=== PATIENT | female | born 1970 | race Caucasian/White ===

== ENCOUNTER 2021-06-24 23:28 | Observation (INO) ==
[2021-06-25] MEDS ORDERED: SODIUM CHLORIDE 0.9% 500 ML IV STA (00:06)
--- NOTE | 2021-06-25 00:07 | Emergency Department Note ---
Impression & Plan Acute cholecystitis ADMIT ED Provider Note HPI: The patient is a 50-year-old female who presents the emergency department with a chief complaint of right upper quadrant abdominal pain. Patient states this pain began about 2 hours prior to arrival to the ED. She states she has had similar pain in the past that resolved on its own. Patient states that about 2 hours prior to arrival she developed a pain in the right upper quadrant that radiated to her back. She states she did have one episode of vomiting. Patient states that the pain has been relatively severe recently, states that it is in her upper abdomen and radiates somewhat towards her back. Patient denies any dysuria, denies any chest pain or shortness of breath. On arrival she is in mild distress secondary to pain but otherwise hemodynamically stable, saturating well on room air. ROS: -GI: Right upper quadrant abdominal pain radiating to the back *10 point review systems was conducted and is otherwise negative unless stated above *Outpatient medications and allergy history reviewed PE: General: Alert, NAD, morbidly obese HEENT: Normocephalic, atraumatic, trachea midline Eyes: Extraocular eye movement is intact, no scleral erythema Pulmonary: Clear to auscultation bilaterally, no wheezing Cardio: Regular rate and rhythm GI: Abdomen is soft, there is tenderness to the bilateral upper quadrants of the abdomen, no guarding or rigidity : No suprapubic tenderness MSK: No evidence of trauma or malformation of the extremities, no edema Skin: No evidence of rash Neuro: Alert, no focal deficits Psychiatric: Cooperative cafeteria monitor: - An order was placed for continuous cardiac monitoring - Patient was noted to be in sinus rhythm with rate of 60 EKG: Rate: 64 Rhythm: Normal sinus rhythm Intervals: Within normal limits ST changes: No ST elevation Time: 0013 CT ABDOMEN & PELVIS With Contrast: Comparison to ultrasound from June 25, [address] scan from June 17, 2011. There is a 3 cm hiatal hernia. Mild fatty infiltration of the liver. No focal liver lesion is seen. The liver is enlarged measuring 20 cm craniocaudad. No intrahepatic biliary duct dilation or choledocholithiasis. The gallbladder is distended but nondilated measuring 4.2 cm in short axis diameter. No calcified gallstones identified. No pericholecystic inflammation. The pancreas, spleen, adrenal glands, and kidneys appear within normal limits. Bowel loops are nondilated. There is a moderate amount of stool in the cecum and right colon measuring up to 6.7 cm in diameter suggesting mild constipation. The appendix is normal. There is severe diverticulosis of the lower left and sigmoid colon. No acute inflammatory changes are seen involving the bowel. Skeletal structures show mild degenerative changes in the lower thoracic spine. No fracture or bone lesion. Radiologist: Dionicio Valdez MD US RUQ: Comparison to CT scan from April 17, 2011. The liver measures 17 cm with normal echotexture. No focal liver lesion is seen. The gallbladder is nondilated measuring 9.9 cm long axis. There appears to be shadowing stone in the gallbladder neck. The wall thickness is borderline increased. No pericholecystic fluid is seen. Sonographic Medina sign cannot be assessed due to recent pain medication administration. The common bile duct is nondilated measuring 5 mm. The right kidney appears unremarkable. No hydronephrosis. Radiologist: Dionicio Valdez MD Medical Decision Making: Patient presented to the emergency department with some upper abdominal pain that radiated to her back. She is morbidly obese, I do have concern given that she does have pain in the right upper quadrant that her pain was secondary to biliary pathology. Lab work was obtained and is largely unremarkable, no transaminitis or elevated bilirubin, ultrasound imaging shows possible stone in the gallbladder neck, there is wall thickness that is borderline increased but no pericholecystic fluid is seen. CT imaging of the abdomen pelvis does not show any evidence of small bowel obstruction, there is some constipation, appendix appears normal, diverticulosis without any evidence of diverticulitis. Patient was given multiple doses of morphine and Zofran here in the ED, on my reassessment she still appears uncomfortable, states that she is not comfortable going home at this time. I do believe this is likely related to gallbladder pathology therefore I did discuss the case with the on-call general surgery PA, Bret Mccormack, patient was evaluated at the bedside and this is thought to be biliary pathology. Ultrasound imaging was re-read by in-house radiology and is now suggestive of acute cholecystitis on this interpretation. I believe that this is likely what is causing the patient's pain. Patient will be added onto the surgery schedule and was admitted to the service of Dr. Jordan following my discussion with the daytime on-call PARaul. Patient was made n.p.o., she is in agreement to the above plan, she was admitted to the surgical service in stable condition with plan for operative intervention today. * Diagnosis: Acute cholecystitis * Disposition: ADMIT Colton Mackey DO Emergency Medicine Past Med/Surg History Medical History (Updated 06/25/21 @ 07:22 by Colton Mackey DO) Anxiety HX: breast cancer RT BREAST (RADIATION)- DX: 08/2018 Surgical History H/O lumpectomy (08/2018) RT BREAST Previous section X 1 [place] teeth removed Family History Brother Afib Heart disease Father Heart disease Parkinsons disease Sister Breast cancer Family history of diabetes mellitus Mother Vaginal melanoma Social History Smoking Status: Never smoker Second Hand Exposure: No; Hx Alcohol Use: Yes Alcohol type: wine Hx Substance Use: No Preferred Language: Nepali Communication Ability: Effective Meal Cooker Required: No Beliefs That Will Affect Care: None marital status: Current Living Situation: Family 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: 14 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 Feels Safe at Home: Yes Diet Comment: reg diet Physical Activity Frequency: Does not Exercise Assistive Devices: None Allergies Allergies Allergy/AdvReac Type Severity Reaction Status Date / Time No Known Allergies Allergy Verified 06/25/21 00:46 Home Meds Home Medications Medication Instructions Recorded Confirmed cholecalciferol (vitamin D3) 25 25 mcg PO DAILY 12/19/19 06/25/21 mcg (1,000 unit) tablet (Vitamin D3) tamoxifen 20 mg tablet 20 mg PO QPM 12/19/19 06/25/21 Results & Data (ED) Vital Signs Vital Signs - 24 hr 06/24/21 23:33 06/25/21 00:29 06/25/21 03:42 Temperature 36.6 C 36.5 C Temperature Source Temporal Artery Scan Oral Pulse Rate 72 Pulse Rate [Right Finger] 60 54 L Pulse Rhythm Regular Pulse Rhythm [Right Finger] Regular Regular Pulse Strength Normal Pulse Strength [Right Finger] Normal Normal Respiratory Rate 18 18 18 Respiratory Effort / Characteristics Non-Labored Spontaneous Non-Labored Spontaneous Non-Labored Spontaneous Respiratory Depth Normal Normal Normal Respiratory Pattern Agonal Regular Blood Pressure 165/91 H Blood Pressure [Left Arm] 178/104 H 124/76 Blood Pressure Mean 115 Blood Pressure Mean [Left Arm] 128 92 Blood Pressure Position Sitting Blood Pressure Position [Left Arm] Lying Lying Pulse Oximetry 100 100 99 Oxygen Delivery Method Room Air Room Air Room Air Sepsis Recent Fever Within 48 Hours No Sepsis New/Unexplained Change in Mental Status N/A Sepsis Action Taken by Nursing No Action Required 06/25/21 06:23 Temperature Temperature Source Pulse Rate Pulse Rate [Right Finger] 63 Pulse Rhythm Pulse Rhythm [Right Finger] Regular Pulse Strength Pulse Strength [Right Finger] Normal Respiratory Rate 18 Respiratory Effort / Characteristics Non-Labored Spontaneous Respiratory Depth Normal Respiratory Pattern Blood Pressure Blood Pressure [Left Arm] 179/96 H Blood Pressure Mean Blood Pressure Mean [Left Arm] 123 Blood Pressure Position Blood Pressure Position [Left Arm] Lying Pulse Oximetry 99 Oxygen Delivery Method Room Air Sepsis Recent Fever Within 48 Hours Sepsis New/Unexplained Change in Mental Status Sepsis Action Taken by Nursing Laboratory Data Result diagrams: 06/25/21 00:19 06/25/21 00:19 Lab Results 06/25/21 06/25/21 06/25/21 Range/Units 00:19 00:19 00:25 WBC 4.99 (4.8-10.8) K/uL RBC 4.52 (4.2-5.4) M/uL Hgb 13.7 (12.0-16.0) g/dL Hct 40.0 (37-47) % MCV 88.5 (80-100) fL MCH 30.3 (25-34) pg MCHC 34.3 (32-36) g/dL RDW Std Deviation 39.5 (36.4-46.3) fL RDW Coeff of Jayla 12.4 (11.5-14.5) % Plt Count 249 (130-400) K/uL MPV 11.1 H (7.4-10.4) fL Immature Gran % (Auto) 0.2 % Neut % (Auto) 58.3 % Lymph % (Auto) 27.7 % [place] % (Auto) 9.4 % Eos % (Auto) 3.6 % Baso % (Auto) 0.8 % Neut # (Auto) 2.91 (1.4-6.5) K/uL Lymph # (Auto) 1.38 (1.2-3.4) K/uL [place] # (Auto) 0.47 (0.11-0.59) K/uL Eos # (Auto) 0.18 (0-0.5) K/uL Baso # (Auto) 0.04 (0-0.2) K/uL Immature Gran # (Auto) 0.01 (0.00-0.02) K/uL Sodium 141 (136-145) mmol/L Potassium 3.6 (3.5-5.1) mmol/L Chloride 107 (98-107) mmol/L Carbon Dioxide 29 (21-32) mmol/L Anion Gap 5.0 (3-11) BUN 15 (7-18) mg/dl Creatinine 0.79 (0.6-1.2) mg/dl Est Cr Clr Drug Dosing 108.1 ml/min Est GFR ( Amer) 101.2 ml/min Est GFR (Non-Af Amer) 87.3 ml/min BUN/Creatinine Ratio 19.4 (10-20) Glucose 116 H (70-99) mg/dl Calcium 10.0 (8.5-10.1) mg/dl Total Bilirubin 0.3 (0.2-1) mg/dl AST 13 L (15-37) U/L ALT 21 (12-78) U/L Alkaline Phosphatase 78 (45-117) U/L Troponin I < 0.015 (0-0.045) ng/ml Total Protein 7.2 (6.4-8.2) gm/dl Albumin 3.5 (3.4-5.0) gm/dl Globulin 3.7 (2.5-4.0) gm/dl Albumin/Globulin Ratio 0.9 (0.9-2) Lipase 117 (73-393) U/L Urine Color Yellow Urine Appearance Clear (Clear) Urine pH 5.5 (4.5-7.5) Ur Specific [place] 1.036 H (1.000-1.030) Urine Protein Negative (Negative) Urine Glucose (UA) Negative (Negative) Urine Ketones Trace H (Negative) Urine Blood Negative (Negative) Urine Nitrite Negative (Negative) Urine Bilirubin Negative (Negative) Urine Urobilinogen Negative (Negative) Ur Leukocyte Esterase 1+ H (Negative) Urine WBC (Auto) >30 H (0-5) /hpf Urine RBC (Auto) 0-4 (0-4) /hpf U Hyaline Cast (Auto) 5-10 H (0-5) /lpf U Epithel Cells (Auto) >30 H (0-5) /lpf Urine Bacteria (Auto) 1+ H (Negative) Calcium Oxalate Crystal Present A (None Prsent) Urine Mucus Present A (None Prsent) COVID-19 Eval Order 06/25/21 Range/Units 06:25 WBC (4.8-10.8) K/uL RBC (4.2-5.4) M/uL Hgb (12.0-16.0) g/dL Hct (37-47) % MCV (80-100) fL MCH (25-34) pg MCHC (32-36) g/dL RDW Std Deviation (36.4-46.3) fL RDW Coeff of Jayla (11.5-14.5) % Plt Count (130-400) K/uL MPV (7.4-10.4) fL Immature Gran % (Auto) % Neut % (Auto) % Lymph % (Auto) % [place] % (Auto) % Eos % (Auto) % Baso % (Auto) % Neut # (Auto) (1.4-6.5) K/uL Lymph # (Auto) (1.2-3.4) K/uL [place] # (Auto) (0.11-0.59) K/uL Eos # (Auto) (0-0.5) K/uL Baso # (Auto) (0-0.2) K/uL Immature Gran # (Auto) (0.00-0.02) K/uL Sodium (136-145) mmol/L Potassium (3.5-5.1) mmol/L Chloride (98-107) mmol/L Carbon Dioxide (21-32) mmol/L Anion Gap (3-11) BUN (7-18) mg/dl Creatinine (0.6-1.2) mg/dl Est Cr Clr Drug Dosing ml/min Est GFR ( Amer) ml/min Est GFR (Non-Af Amer) ml/min BUN/Creatinine Ratio (10-20) Glucose (70-99) mg/dl Calcium (8.5-10.1) mg/dl Total Bilirubin (0.2-1) mg/dl AST (15-37) U/L ALT (12-78) U/L Alkaline Phosphatase (45-117) U/L Troponin I (0-0.045) ng/ml Total Protein (6.4-8.2) gm/dl Albumin (3.4-5.0) gm/dl Globulin (2.5-4.0) gm/dl Albumin/Globulin Ratio (0.9-2) Lipase (73-393) U/L Urine Color Urine Appearance (Clear) Urine pH (4.5-7.5) Ur Specific [place] (1.000-1.030) Urine Protein (Negative) Urine Glucose (UA) (Negative) Urine Ketones (Negative) Urine Blood (Negative) Urine Nitrite (Negative) Urine Bilirubin (Negative) Urine Urobilinogen (Negative) Ur Leukocyte Esterase (Negative) Urine WBC (Auto) (0-5) /hpf Urine RBC (Auto) (0-4) /hpf U Hyaline Cast (Auto) (0-5) /lpf U Epithel Cells (Auto) (0-5) /lpf Urine Bacteria (Auto) (Negative) Calcium Oxalate Crystal (None Prsent) Urine Mucus (None Prsent) COVID-19 Eval Order Covid19 at [facility] Administered Medications Discontinued Medications Sodium Chloride (Nss) 500 mls @ 999 mls/hr IV .Q31M STA Stop: 06/25/21 00:36 Last Infusion: 06/25/21 01:43 Dose: 0 mls/hr Documented by: [id number] Admin: 06/25/21 00:21 Dose: 999 mls/hr Documented by: [id number] Cefoxitin Sodium (Mefoxin) 2,000 mg in 60 mls @ 100 mls/hr IV NOW STA Stop: 06/25/21 07:04 Last Admin: 06/25/21 06:57 Dose: 100 mls/hr Documented by: [id number] Ioversol (Optiray 320 100ml) 100 ml IV ONCE ONE Stop: 06/25/21 04:35 Last Admin: 06/25/21 04:34 Dose: 93 ml Documented by: [id number] Morphine Sulfate (Morphine Sulfate 4 Mg/Ml 1 Ml Carp\Vial) 4 mg IV NOW STA Stop: 06/25/21 00:37 Last Admin: 06/25/21 00:40 Dose: 4 mg Documented by: [id number] Morphine Sulfate (Morphine Sulfate 4 Mg/Ml 1 Ml Carp\Vial) 4 mg IV NOW STA Stop: 06/25/21 06:10 Last Admin: 06/25/21 06:18 Dose: 4 mg Documented by: [id number] Ondansetron HCl (Ondansetron Inj 2 Mg/Ml 2 Ml Vial) 4 mg IV NOW STA Stop: 06/25/21 03:32 Last Admin: 06/25/21 03:39 Dose: Not Given Documented by: [id number] Ondansetron HCl (Ondansetron Inj 2 Mg/Ml 2 Ml Vial) 4 mg IV NOW STA Stop: 06/25/21 03:37 Last Admin: 06/25/21 03:40 Dose: 4 mg Documented by: [id number] Imaging Data Radiologist's Impression: Gallbladder Ultrasound 06/25/21 00:06 US gallbladder CLINICAL HISTORY: Abdominal pain COMPARISON STUDY: CT of the abdomen and pelvis April 17, 2011. FINDINGS: Liver morphology is normal. No hepatic lesions are identified. There is no biliary ductal dilatation. Common bile duct measures 5 mm in caliber. The gallbladder is mildly distended. No gallbladder wall thickening is noted. Sonographic Medina sign could not be assessed for. There are suspected small stones within the gallbladder neck or cystic duct. There is no pericholecystic fluid. There is no right hydronephrosis. Pancreatic body is normal. Head and tail are obscured. IMPRESSION: 1. Suspected small stones within the gallbladder neck and cystic duct. Mild gallbladder distention. The findings are suspicious for acute cholecystitis and will be called/faxed to the ordering provider. 2. No biliary ductal dilatation. ACT 112: Negative or not required by law. Electronically signed by: Erasto Givens M.D. 06/25/2021 7:05 AM Chest X-Ray 06/25/21 06:36 XR chest 1V portable CLINICAL HISTORY: Preoperative evaluation. COMPARISON STUDY: No previous studies for comparison. FINDINGS: Lung volumes are normal. Lungs are clear. There is no pneumothorax or pleural effusion. Cardiac size is normal. Mediastinal contours are normal. There is no evidence for pulmonary edema. IMPRESSION: No acute cardiopulmonary findings. ACT 112: Negative or not required by law. Electronically signed by: Erasto Givens M.D. 06/25/2021 7:06 AM Discharge Plan Visit Data Chief Complaint: Abdominal Pain Stated Complaint: R SIDE ABDOMINAL PAIN, BACK PAIN, NAUSEA ED Provider: Colton Mackey Discharge Problem: Acute cholecystitis Forms Stand Alone Forms: [facility] Prescriptions Prescriptions: No Action tamoxifen 20 mg Tablet 20 mg PO QPM RF: 0 cholecalciferol (vitamin D3) [Vitamin D3] 25 mcg (1,000 unit) Tablet 25 mcg PO DAILY RF: 0 Referrals Referrals: Zari Machado CRNP [Primary Care Provider] -
[2021-06-25 00:32] LABS: Basophils # (auto) 0.04 K/uL (0-0.2); Basophils % (auto) 0.8 %; Eosinophils # (auto) 0.18 K/uL (0-0.5); Eosinophils % (auto) 3.6 %; Hemoglobin 13.7 g/dL (12.0-16.0); Immature Granulocytes # (auto) 0.01 K/uL (0.00-0.02); Immature Granulocytes % (auto) 0.2 %; Lymphocytes # (auto) 1.38 K/uL (1.2-3.4); Lymphocytes % (auto) 27.7 %; Mean Corpuscular Hemoglobin 30.3 pg (25-34); Mean Corpuscular Hgb Conc 34.3 g/dL (32-36); Mean Corpuscular Volume 88.5 fL (80-100); Mean Platelet Volume 11.1 fL (7.4-10.4); Monocytes # (auto) 0.47 K/uL (0.11-0.59); Monocytes % (auto) 9.4 %; Neutrophils # (auto) 2.91 K/uL (1.4-6.5); Neutrophils % (auto) 58.3 %; Platelet Count 249 K/uL (130-400); RDW Coefficient of Variation 12.4 % (11.5-14.5); RDW Standard Deviation 39.5 fL (36.4-46.3); Red Blood Count 4.52 M/uL (4.2-5.4); White Blood Count 4.99 K/uL (4.8-10.8)
[2021-06-25] MEDS ORDERED: MoRPHine SULFATE 4 MG/ML 1 ML CARP\\VIAL IV STA ×2 (00:36→06:09)
[2021-06-25 00:55] LABS: Alanine Aminotransferase 21 U/L (12-78); Albumin Level 3.5 gm/dl (3.4-5.0); Aspartate Aminotransferase 13 U/L (15-37); BUN Creatinine Ratio 19.4 (10-20); Blood Urea Nitrogen 15 mg/dl (7-18); Carbon Dioxide 29 mmol/L (21-32); Chloride 107 mmol/L (98-107); Creatinine Clr Calc Pharmacy 108.1 ml/min; Est GFR (African American) 101.2 ml/min; Est GFR (Non-African American) 87.3 ml/min; Glucose 116 mg/dl (70-99); Lipase 117 U/L (73-393); Potassium 3.6 mmol/L (3.5-5.1); Sodium 141 mmol/L (136-145)
[2021-06-25 01:00] LABS: Albumin Globulin Ratio 0.9 (0.9-2); Alkaline Phosphatase 78 U/L (45-117); Bilirubin,Total 0.3 mg/dl (0.2-1); Globulin 3.7 gm/dl (2.5-4.0); Total Protein 7.2 gm/dl (6.4-8.2); Troponin I < 0.015 ng/ml (0-0.045)
[2021-06-25 01:55] LABS: Appearance Urine Clear (Clear); Bilirubin Urine Negative (Negative); Blood Urine Negative (Negative); Color Urine Yellow; Epithelial Cell Urine Auto >30 /lpf (0-5); Glucose Urine UA Negative (Negative); Ketones Urine Trace (Negative); Leukocyte Esterase Urine 1+ (Negative); Nitrite Urine Negative (Negative); Protein Urine Negative (Negative); Specific Gravity Urine 1.036 (1.000-1.030); Urobilinogen Urine Negative (Negative); WBC Urine Automated >30 /hpf (0-5); pH Urine 5.5 (4.5-7.5)
[2021-06-25 02:19] LABS: Mucus Urine Present (None Prsent); RBC Urine Automated 0-4 /hpf (0-4)
[2021-06-25 02:20] LABS: Calcium Oxalate Crystals Urine Present (None Prsent)
[2021-06-25 02:21] LABS: Bacteria Urine Automated 1+ (Negative)
[2021-06-25] MEDS ORDERED: ONDANSETRON INJ 2 MG/ML 2 ML VIAL IV STA ×2 (03:31→03:36)
[2021-06-25] MEDS ORDERED: OPTIRAY 320 100ml IV ONE (04:34)
[2021-06-25] MEDS ORDERED: cefOXitin 2,000 MG/60 ML BAG IV STA (06:29)
--- NOTE | 2021-06-25 06:31 | History & Physical Report ---
Date of Service June 25, 2021 Assessment & Plan (1) Cholelithiasis: Plan: Due to the patient's imaging and clinical presentation she will be admitted to the hospital proceeding as follows: Covid test has been performed we will follow for results of this Keep patient n.p.o. Provide IV fluid for hydration Provide antibiotics the form of cefoxitin Provide analgesics Provide antiemetics I discussed the cholecystectomy with the patient and she wishes to proceed. I have discussed Dr. Jordan and he will be willing to perform the procedure later today Additional recommendations were made based on her clinical course as unfolds as well as operative findings She will be a full code SCDs will be used for DVT prevention. History of Present Illness Chief Complaint: Abdominal pain Primary Care Provider: JUSTO Hammonds Is a 50-year-old female who presented to emergency department with right upper quadrant pain and associated nausea vomiting. She denies any fever shakes or chills. Patient says several months ago she did have right upper quadrant pain shortly after eating but this pain remitted. Last evening the pain recurred in a similar fashion and was unbearable so she presented to the emergency department. Denies radiation of the pain and denies any palliative or provocative factors other than medicines administered in the emergency department. She says she has had prior abdominal surgeries in the form of a C- section. In the emergency department patient had labs and imaging which independent reviewed. A CBC revealed white blood cell count, hemoglobin, hematocrit, and platelet count are within normal range. Chemistry profile showed sodium, potassium, BUN, and creatinine were all within the normal range. There were no elevation of bilirubin, transaminases, or alkaline phosphatase. Her lipase was normal. Urinalysis revealed greater than 30 white blood cells per high-power field and 1+ leukocyte esterase. A Covid test has been ordered and is pending. An EKG showed normal sinus rhythm without changes indicative of a gallbladder ultrasound that showed the patient had a nondilated gallbladder but she was noted to have a gallstone in the gallbladder neck with borderline gallbladder wall thickness and no pericholecystic fluid. A CT scan of the abdomen and pelvis showed the patient did have a distended gallbladder but was not dilated. No pericholecystic fluid or inflammation was noted on the study. Patient notes with her daily activities she does not get chest pain or shortness of breath with ambulation. She says that she can negotiate steps and inclines without any limitations. At the time my interview the patient was resting comfortably in bed. She was in no distress but was somewhat uncomfortable in the right upper quadrant of her abdomen. Allergies Allergy/AdvReac Type Severity Reaction Status Date / Time No Known Allergies Allergy Verified 06/25/21 00:46 Home Medications Medication Instructions Recorded Confirmed Type cholecalciferol (vitamin D3) 25 25 mcg PO DAILY 12/19/19 06/25/21 History mcg (1,000 unit) tablet (Vitamin D3) tamoxifen 20 mg tablet 20 mg PO QPM 12/19/19 06/25/21 History Past Med/Surg History Medical History Anxiety HX: breast cancer RT BREAST (RADIATION)- DX: 08/2018 Surgical History H/O lumpectomy (08/2018) RT BREAST Previous section X 1 [place] teeth removed Family History Brother Afib Heart disease Father Heart disease Parkinsons disease Sister Breast cancer Family history of diabetes mellitus Mother Vaginal melanoma Social History Smoking Status: Never smoker Second Hand Exposure: No; Hx Alcohol Use: No Hx Substance Use: No Preferred Language: Montserratian Communication Ability: Effective Statement Distribution Clerk Required: No Beliefs That Will Affect Care: None marital status: Current Living Situation: Spouse 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: 14 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 Feels Safe at Home: Yes Safety Concerns: Feels Safe At This Time Diet Comment: reg diet Physical Activity Frequency: Does not Exercise Assistive Devices: Glasses Review of Systems Constitutional: no fever and no chills Eyes: no diplopia Ear, Nose, Mouth, Throat: no ear pain Respiratory: no cough and no dyspnea Cardiovascular: no chest pain Gastrointestinal: + abdominal pain, + nausea and + vomiting Genitourinary: no dysuria Musculoskeletal: no back pain Integumentary: no rash Neurologic: no localized weakness Physical Exam Constitutional: well developed and well nourished; no acute distress Eyes: no conjunctival abnormality ENMT: Ears: no hearing impairment Neck: trachea midline Respiratory: normal respiratory effort; no respiratory distress and no labored breathing Cardiovascular: Rate/Rhythm: regular rate and regular rhythm Gastrointestinal (Abdomen): Abdomen is soft and nondistended. There is no r ebound tenderness or guarding but patient had significant pain with palpation in the right upper quadrant. Musculoskeletal: No calf tenderness Skin: no rashes, warm and dry Neurologic: moves all extremities Psychiatric: A+Ox3, euthymic affect Results & Data Results & Data ([facility]) Vital Signs (Past 12 Hours) Vital Signs Temp Pulse Pulse Resp BP BP Pulse Ox 06/25/21 06:23 63 18 179/96 H 99 06/25/21 03:42 54 L 18 124/76 99 06/25/21 00:29 36.5 C 60 18 178/104 H 100 06/24/21 23:33 36.6 C 72 18 165/91 H 100 Code Status & VTE Plan VTE Prophylaxis Plan VTE Prophylaxis will be ordered: Yes Supervising Physician Co-Signing Physician Notes Patient seen and examined, labs and imaging reviewed, agree with above. 50-year-old female presented with postprandial right upper quadrant pain started last evening. She had a similar episode about a month ago that resolved on its own after several hours. On exam she is afebrile with stable vitals. Her abdomen is soft, tender to palpation in the right upper quadrant with negative Medina sign. CT with distended gallbladder. Right upper quadrant ultrasound with cholelithiasis and question of impacted gallstone in gallbladder neck. WBC and LFTs normal. Cholelithiasis with likely early acute cholecystitis Plan for laparoscopic cholecystectomy with possible cholangiogram Risk of the procedure were discussed to include but not limited to bleeding, infection, retained stone, bile leak, damage surrounding structures, need for future more extensive surgery, open surgery, and the risk of anesthesia PG Care Time/CCT Total # of Minutes Spent Total Time Spent with Patient: Total time spent is greater than 50% in coordination of care (as documented) at patient's floor/unit and/or counseling patient: Coding Level of Care Code INT OBSERVATION CARE 70M LVL 3 Diagnoses Cholelithiasis K80.20
--- NOTE | 2021-06-25 07:07 | XRay Report ---
XR chest 1V portable CLINICAL HISTORY: Preoperative evaluation. COMPARISON STUDY: No previous studies for comparison. FINDINGS: Lung volumes are normal. Lungs are clear. There is no pneumothorax or pleural effusion. Car diac size is normal. Mediastinal contours are normal. There is no evidence for pulmonary edema. IMPRESSION: No acute cardiopulmonary findings. ACT 112: Negative or not required by law. Electronically signed by: Erasto Givens M.D. 06/25/2021 7:06 AM
--- NOTE | 2021-06-25 07:07 | Ultrasound Report ---
US gallbladder CLINICAL HISTORY: Abdominal pain COMPARISON STUDY: CT of the abdomen and pelvis April 17, 2011. FINDINGS: Liver morphology is normal. No hepatic lesions are identified. There is no biliary ductal d ilatation. Common bile duct measures 5 mm in caliber. The gallbladder is mildly distended. No gallbla dder wall thickening is noted. Sonographic Medina sign could not be assessed for. There are suspected small stones within the gallbladder neck or cystic duct. There is no pericholecystic fluid. There is no right hydronephrosis. Pancreatic body is normal. Head and tail are obscured. IMPRESSION: 1. Suspected small stones within the gallbladder neck and cystic duct. Mild gallbladder distention. T he findings are suspicious for acute cholecystitis and will be called/faxed to the ordering provider. 2. No biliary ductal dilatation. ACT 112: Negative or not required by law. Electronically signed by: Erasto Givens M.D. 06/25/2021 7:05 AM
--- NOTE | 2021-06-25 07:49 | CT Scan Report ---
CT abd pelvis IV con only CLINICAL HISTORY: Right-sided flank pain COMPARISON STUDY: 04/17/2011 CT DOSE: 1784.10 mGy.cm TECHNIQUE: Standard CT of the Abdomen and Pelvis was performed with IV contrast. A dose lowering silvia hnique was utilized adhering to the principles of ALARA. Contrast Volume: Optiray 320, 93 ml. The patient did not receive oral contrast. FINDINGS: Lung base: The lung bases are clear. Abdominal cavity: There is no evidence for abdominal mass, adenopathy or ascites. Liver: There is homogeneous attenuation of the liver parenchyma. There is no evidence for enhancing m ass lesion. There is evidence for mild hepatomegaly. Spleen: There is homogeneous attenuation of the splenic parenchyma. There is no enhancing mass lesion . Pancreas: There is homogeneous attenuation of the pancreatic parenchyma. There is no evidence for mas s lesion or peripancreatic fluid collection. Gall Bladder: The gallbladder is distended. No calculi or wall thickening is seen. If indicated clini [place], follow-up gallbladder ultrasound would be the study of choice for further evaluation. Adrenal glands: The adrenal glands are normal in size and attenuation. There is no evidence for enhan cing mass lesion. Kidneys: There is homogeneous attenuation of the renal parenchyma bilaterally. There is no evidence f or renal calculus or hydronephrosis. There is no evidence for enhancing mass. Bowel: There is a small to moderate size hiatal hernia. The bowel loops are normally placed within th e abdomen and pelvis. There is no evidence for mass lesion. There is again sigmoid diverticulosis wit hout evidence for diverticulitis on the current study. There are no inflammatory changes present. The re is no evidence for free air. There is a normal appendix in the right lower quadrant. Bladder: The bladder is within normal limits with no evidence for focal mass, calculus or diverticulu m. : There is no evidence for pelvic mass or adenopathy. There is no evidence for pelvic ascites. Vasculature: There is no evidence for aneurysmal dilatation of the abdominal aorta. Osseous structures: There is no acute osseous pathology. Degenerative facet joint disease is present involving the lower lumbar spine. IMPRESSION: 1. No evidence for renal calculus or hydronephrosis. 2. Normal appendix in the right lower quadrant. 3. Sigmoid diverticulosis without evidence for diverticulitis. 4. Small to moderate size hiatal hernia. 5. Additional nonacute findings as delineated above. ACT 112: Negative or not required by law. Electronically signed by: Jp Lozada M.D. 06/25/2021 7:48 AM
[2021-06-25] MEDS ORDERED: ONDANSETRON INJ 2 MG/ML 2 ML VIAL ONE ×2 (08:33→09:57)
[2021-06-25] MEDS ORDERED: MoRPHine SULFATE 4 MG/ML 1 ML CARP\\VIAL IV PRN ×2 (09:12→14:53)
[2021-06-25] MEDS ORDERED: ONDANSETRON INJ 2 MG/ML 2 ML VIAL IV PRN ×2 (09:12→14:53)
--- NOTE | 2021-06-25 09:16 | Anesthesiology Consultation ---
Date of Service June 25, 2021 Assessment & Plan (1) Encounter for pre-operative examination: Chart Review Chart Review: Acceptable Risk for Surgery and Patient NOT seen in Pre Admission Testing Consults Requested none History Surgery Operation Date: 06/25/21 09:40 Proposed Procedures p Laparoscopic Versus Open Cholecystectomy - Abdoulaye Jordan DO, FACS Height/Weight Height: 5 ft 5 in Weight: 115.4 kg Allergies Allergy/AdvReac Type Severity Reaction Status Date / Time No Known Allergies Allergy Verified 06/25/21 00:46 Medications Home Medications Medication Instructions Recorded Confirmed Last Taken cholecalciferol (vitamin D3) 25 25 mcg PO DAILY 12/19/19 06/25/21 01/15/20 19:00 mcg (1,000 unit) tablet (Vitamin D3) tamoxifen 20 mg tablet 20 mg PO QPM 12/19/19 06/25/21 01/15/20 19:00 Past Medical History Medical History Anxiety HX: breast cancer RT BREAST (RADIATION)- DX: 08/2018 Past Family History Family History Brother Afib Heart disease Father Heart disease Parkinsons disease Sister Breast cancer Family history of diabetes mellitus Mother Vaginal melanoma Past Surgical History Surgical History H/O lumpectomy (08/2018) RT BREAST Previous section X 1 [place] teeth removed Social History Smoking Status: Never smoker Hx Alcohol Use: No Alcohol type: wine alcohol intake frequency: a few times a month Hx Substance Use: No substance use type: does not use Physical Exam Vital Signs Last Vital Signs Temp 98.1 F 06/25/21 07:39 Pulse 57 L 06/25/21 08:49 Resp 20 06/25/21 08:49 BP 183/94 H 06/25/21 08:49 Pulse Ox 57 L 06/25/21 08:49 Testing Laboratory Results 06/25/21 00:19 06/25/21 00:19 Urine Color Yellow 06/25/21 00:25 Urine Appearance Clear (Clear) 06/25/21 00:25 Urine pH 5.5 (4.5-7.5) 06/25/21 00:25 Ur Specific [place] 1.036 (1.000-1.030) H 06/25/21 00:25 Urine Protein Negative (Negative) 06/25/21 00:25 Urine Glucose (UA) Negative (Negative) 06/25/21 00:25 Urine Ketones Trace (Negative) H 06/25/21 00:25 Urine Nitrite Negative (Negative) 06/25/21 00:25 Ur Leukocyte Esterase 1+ (Negative) H 06/25/21 00:25 Urine WBC (Auto) >30 /hpf (0-5) H 06/25/21 00:25 Urine RBC (Auto) 0-4 /hpf (0-4) 06/25/21 00:25 U Hyaline Cast (Auto) 5-10 /lpf (0-5) H 06/25/21 00:25 U Epithel Cells (Auto) >30 /lpf (0-5) H 06/25/21 00:25 Urine Bacteria (Auto) 1+ (Negative) H 06/25/21 00:25 Electrocardiogram Date: 06/25/21 Findings: + NSR @
[2021-06-25] MEDS: LACTATED RINGER'S 1,000 ML IV SCH (09:21)
[2021-06-25] MEDS ORDERED: LIDOCAINE 2% 2 ML VIAL/AMP(20MG/ML) INFIL ONE (09:56)
[2021-06-25] MEDS ORDERED: PROPOFOL IV EMULSION 10 MG/ML 20 ML VIAL IV ONE (09:56)
[2021-06-25] MEDS ORDERED: MIDAZOLAM HCL 1 MG/ML 2ML VIAL ONE (09:57)
[2021-06-25] MEDS ORDERED: fentaNYL citrate 100 MCG/2 ML VIAL ONE ×2 (09:57→14:04)
[2021-06-25] MEDS ORDERED: NEOSTIGMINE METHYLSULFATE 1 MG/ML 10ML VIAL ONE (09:57)
[2021-06-25] MEDS ORDERED: ROCURONIUM BROMIDE 10 MG/ML 5 ML VIAL IV ONE (09:57)
[2021-06-25] MEDS ORDERED: GLYCOPYRROLATE 0.2 MG/ML VIAL ONE (09:57)
[2021-06-25] MEDS ORDERED: DEXAMETHASONE SOD INJ 4 MG/ML VIAL ONE (09:57)
[2021-06-25] MEDS ORDERED: ACETAMINOPHEN 1000 MG/100 ML IV IV ONE (10:17)
[2021-06-25] MEDS ORDERED: ATROPINE SULFATE 0.1 MG/ML 10ML SYR IV PRN (11:16)
[2021-06-25] MEDS ORDERED: PROMETHAZINE HCL 12.5 MG in SODIUM CHLORIDE 0.9% 50 ML IV PRN (11:16)
[2021-06-25] MEDS ORDERED: LABETALOL HCL IV 5 MG/ML 20ML IV PRN (11:16)
[2021-06-25] MEDS ORDERED: fentaNYL citrate 100 MCG/2 ML VIAL IV PRN (11:16)
[2021-06-25] MEDS ORDERED: ePHEDrine sulfate 50 MG/ML AMP IV PRN (11:16)
[2021-06-25] MEDS ORDERED: BUPIVACAINE 0.5 % 5 MG/1 ML MPF 30ML VIAL ONE (12:36)
--- NOTE | 2021-06-25 12:57 | History & Physical Bridge Note ---
Date of Service June 25, 2021 History & Physical Bridge Note I have examined the patient, reviewed the History & Physical and in the interval since the performance of the History & Physical I have noted the following changes of clinical significance: no changes noted
[2021-06-25] MEDS: cefOXitin 2,000 MG in DEXTROSE 5% 50 ML IV SCH ×2 (13:28→19:16)
--- NOTE | 2021-06-25 13:42 | Electrocardiogram Report ---
Test Reason : Blood Pressure : / mmHG Vent. Rate : 064 BPM Atrial Rate : 064 BPM P-R Int : 192 ms QRS Dur : 084 ms QT Int : 436 ms P-R-T Axes : 039 011 029 degrees QTc Int : 449 ms Normal sinus rhythm Normal ECG When compared with ECG of 29-DEC-2019 10:01, No significant change was found Confirmed by Michael Mcclelland ([id number]) on 06/25/2021 1:42:34 PM Referred By: REFERRED SELF Confirmed By:Michael Mcclelland
--- NOTE | 2021-06-25 14:08 | Operative Report ---
PG Post Operative Report Pre & Post Diagnosis Operation Date: 06/25/21 09:40 Pre-Op Diagnosis: Acute Cholecystitis Post-Op Diagnosis: Acute Cholecystitis I identified the patient and participated in the time-out.: Yes Procedure Operation Date: 06/25/21 09:40 Actual Procedures p Laparoscopic Cholecystectomy(Not Applicable) - Abdoulaye Jordan DO, CHRIS Surgeon Abdoulaye Jordan DO, FACS Spanish Professor Umesh Richardson Estimated Blood Loss 5 Findings Consistent with Post-Op Diagnosis Acute cholecystitis. Gallbladder decompressed. Critical view of safety obtained, cystic duct and artery doubly clipped and divided. Specimens Gallbladder Anesthesia Type General Complications none Disposition Accompanied Patient To Recovery: No Disposition: Recovery Room Indications 50-year-old female admitted early this morning with cholelithiasis and likely acute cholecystitis, plan for laparoscopic cholecystectomy with possible cholangiogram. The risks of the procedure were discussed, all questions were answered, and the patient agreed to proceed with surgery as planned. Description of Procedure The patient was properly identified, consented, and taken to the operating room where she was placed in the supine position. General endotracheal anesthesia was induced. SCDs and a safety belt were placed. Preoperative antibiotics were administered. The patient's abdomen was prepped and draped in the standard sterile fashion. A surgical timeout was performed and all parties were in agreement that this was the correct patient and procedure to be performed and we continued as planned. An incision was made superior and to the left of the umbilicus overlying the rectus muscle and the Veress needle was inserted. Saline drop test confirmed entry into the peritoneum. The abdomen was insufflated with carbon dioxide which the patient tolerated without incident. The abdomen was then entered using the Optiview technique and a 5 mm trocar. The laparoscope was inserted and no damage from initial trocar or Veress needle placement was noted, no gross abnormalities were noted within the 4 quadrants of the abdomen. An 11 mm port was placed in the subxiphoid position and two 5 mm ports were then placed in the right subcostal position. The patient was placed in reverse Trendelenburg position and rotated towards the left. The gallbladder was acutely inflamed. The gallbladder was decompressed to allow for retraction. The dome of the gallbladder was retracted towards the left upper quadrant and the infundibulum was retracted toward the right lower quadrant revealing Calot's triangle. Peritoneal attachments were taken down with electrocautery and blunt dissection. The cystic duct and artery were circumferentially dissected. An anterior branch of the artery ran across the cystic duct and was clipped and divided. A window of safety was obtained showing the cystic duct entering the gallbladder with no aberrant structures noted. The cystic duct and artery were doubly clipped and divided. The gallbladder was then lifted off the gallbladder fossa with electrocautery. The gallbladder was placed in an Endo Catch bag and removed through the subxiphoid port site. The right upper quadrant was irrigated and hemostasis was found to be good. 5 mm trochars were removed under direct visualization and the abdomen was allowed to collapse. The subxiphoid port site fascia was closed with 0 Vicryl suture utilizing the Chilo-Radha device The wound was irrigated, and the skin of all ports was closed with 4-0 Monocryl subcuticular sutures. Dermabond was placed over the wounds. The patient was extubated in the operating room and taken to the PACU where she recovered without apparent incident. All sponge, instrument and needle counts were correct at the conclusion of the procedure. The patient tolerated the procedure well. The physician's tax assistant was present and scrubbed for the entirety of the case and was essential in positioning the patient, prepping and draping, retraction and exposure, driving the laparoscope, removal of the gallbladder, closure the incisions, and placement of the dressings. I attest to the content of the Intraoperative Record and any orders documented therein. Any exceptions are noted below.
[2021-06-25] MEDS ORDERED: oxyCODONE/ACETAMINOPHEN 5mg/325mg TAB PO PRN (14:53)
[2021-06-25] MEDS ORDERED: MoRPHine SULFATE 2 MG/ML CARP IV PRN (14:53)
--- NOTE | 2021-06-25 15:30 | Anesthesiology Progress Note ---
Date of Service June 25, 2021 Anesthesia Post Procedure Vital Signs Vital Signs: Temp Pulse Pulse Pulse Pulse Resp BP 06/25/21 15:00 36.7 C 68 20 06/25/21 14:55 36.6 C 75 22 06/25/21 14:45 73 22 06/25/21 14:35 79 24 06/25/21 14:25 72 28 H 06/25/21 14:19 36.5 C 75 22 06/25/21 10:59 36.7 C 72 16 06/25/21 09:00 59 L 20 06/25/21 08:49 57 L 20 183/94 H 06/25/21 07:39 36.7 C 59 L 22 06/25/21 07:37 60 20 06/25/21 07:00 60 20 06/25/21 06:23 63 18 06/25/21 03:42 54 L 18 06/25/21 00:29 36.5 C 60 18 06/24/21 23:33 36.6 C 72 18 165/91 H BP Pulse Ox 06/25/21 15:00 107/70 95 06/25/21 14:55 113/60 93 06/25/21 14:45 118/62 94 06/25/21 14:35 117/75 97 06/25/21 14:25 120/67 97 06/25/21 14:19 146/85 H 99 06/25/21 10:59 145/87 H 97 06/25/21 09:00 148/90 H 98 06/25/21 08:49 57 L 06/25/21 07:39 133/75 97 06/25/21 07:37 123/101 H 99 06/25/21 07:00 99 06/25/21 06:23 179/96 H 99 06/25/21 03:42 124/76 99 06/25/21 00:29 178/104 H 100 06/24/21 23:33 100 Pain Intensity Abdomen: Pain Intensity: 7 Right Shoulder: Pain Intensity: 2 Transfer of Care Handoff Completed per policy Notes Mental Status: alert / awake / arousable and participated in evaluation Patient Amnestic to Procedure: Yes Nausea / Vomiting: adequately controlled Pain: adequately controlled Airway Patency, RR, SpO2: stable & adequate BP & HR: stable & adequate Hydration State: stable & adequate Anesthetic Complications: no major complications apparent and Pt Satisfied with anesthetic care
[2021-06-25] MEDS: oxyCODONE/ACETAMINOPHEN 5mg/325mg TAB PO PRN ×2 (18:16→22:29)
[2021-06-26] MEDS: cefOXitin 2,000 MG in DEXTROSE 5% 50 ML IV SCH ×2 (01:49→06:13)
[2021-06-26] MEDS: LACTATED RINGER'S 1,000 ML IV SCH (04:34)
--- NOTE | 2021-06-26 07:39 | Surgery Progress Note ---
Date of Service June 26, 2021 Assessment & Plan (1) Acute cholecystitis: Plan: POD 1 lap christina increase activity d/c later today Admission and Anticipated Discharge Date Admission Date: June 25, 2021 Supervising Physician Co-Signing Physician Notes pnt S&E, agree with above. POD#1 lap christina, doing well, feels better. Tolerating diet. AFVSS. Abd soft, appropriately ttp, incisions w/o infection. adv diet, d/c today. wound care instructions, activity restrictions and return precautions reviewed. f/u in 2 weeks in surgery clinic. Subjective tolerating diet, Percocet Physical Exam Gastrointestinal (Abdomen): Inspection/Auscultation: + abdominal surgical incision (dry); abdomen not distended Percussion/Palpation: abdomen soft Results & Data ([facility]) Vital Signs (Past 12 Hours) Vital Signs Temp Pulse Resp BP Pulse Ox 06/26/21 07:19 36.8 C 70 16 125/67 93 06/26/21 03:27 36.7 C 65 15 97/65 L 91 06/25/21 22:17 36.9 C 69 16 98/63 L 92 PG Care Time/CCT Total # of Minutes Spent Total Time Spent with Patient: Total time spent is greater than 50% in coordination of care (as documented) at patient's floor/unit and/or counseling patient: Coding Level of Care Code None Diagnoses Acute cholecystitis K81.0
--- NOTE | 2021-07-01 10:53 | Discharge Summary ---
Date of Service July 01, 2021 Admission HPI Per Admitting Provider Is a 50-year-old female who presented to emergency department with right upper quadrant pain and associated nausea vomiting. She denies any fever shakes or chills. Patient says several months ago she did have right upper quadrant pain shortly after eating but this pain remitted. Last evening the pain recurred in a similar fashion and was unbearable so she presented to the emergency department. Denies radiation of the pain and denies any palliative or provocative factors other than medicines administered in the emergency department. She says she has had prior abdominal surgeries in the form of a . In the emergency department patient had labs and imaging which independent reviewed. A CBC revealed white blood cell count, hemoglobin, hematocrit, and platelet count are within normal range. Chemistry profile showed sodium, potassium, BUN, and creatinine were all within the normal range. There were no elevation of bilirubin, transaminases, or alkaline phosphatase. Her lipase was normal. Urinalysis revealed greater than 30 white blood cells per high-power field and 1+ leukocyte esterase. A Covid test has been ordered and is pending. An EKG showed normal sinus rhythm without changes indicative of a gallbladder ultrasound that showed the patient had a nondilated gallbladder but she was noted to have a gallstone in the gallbladder neck with borderline gallbladder wall thickness and no pericholecystic fluid. A CT scan of the abdomen and pelvis showed the patient did have a distended gallbladder but was not dilated. No pericholecystic fluid or inflammation was noted on the study. Patient notes with her daily activities she does not get chest pain or shortness of breath with ambulation. She says that she can negotiate steps and inclines without any limitations. At the time my interview the patient was resting comfortably in bed. She was in no distress but was somewhat uncomfortable in the right upper quadrant of her abdomen. Principal Diagnosis Acute cholecystitis Discharge Exam Constitutional WD/WN, vitals as above Gastrointestinal (Abdomen) Inspection/Auscultation: + abdominal surgical incision (dermabond intact); abdomen not distended Percussion/Palpation: abdomen soft Discharge Data Allergies Allergy/AdvReac Type Severity Reaction Status Date / Time No Known Allergies Allergy Verified 06/25/21 00:46 Consultations 06/25/21 07:22 ED Decision to Admit Stat Procedures Performed Operation Date: 06/25/21 09:40 Actual Procedures p Laparoscopic Cholecystectomy(Not Applicable) - Abdoulaye Jordan DO, FACS Ordered Studies 06/25/21 00:06 US gallbladder Urgent 06/25/21 03:36 CT abd pelvis IV con only Urgent Hospital Course (1) Acute cholecystitis: 50 y/o female presented to the ER overnight with RUQ abdominal pain. White count was normal although U/S showed distended gallbladder with stones in the ne ck/cystic duct. She was taken to the operating room for laparoscopic cholecystectomy later in the morning and transferred to the surgical floor for overnight observation. By the next morning she was able to advance diet and tolerate oral analgesics and was stable for discharge home. Total Time Total Time Spent Total Time Spent (In Minutes): 15 Discharge Plan Discharge Items Patient Disposition: Home - Self-Care Reason For Visit: CYNTHIA Discharge Diagnosis: laparoscopic cholecystectomy Activity: Per Instructions section Lifting: No more than 10 pounds Bathing Comment: may shower starting 06/26/21, no soaking in tubs/pools Exercise/Sports: Wait until after follow-up appointment Driving/Machine Use: no driving while taking narcotics for pain Non-emergency contact: Surgeon Call non-emergency contact if: you have any medication questions, your symptoms worsen, your pain is not controlled, your pain is worsening, your pain is concerning for you, you have a fever, your temperature is above 101.5, your wound has increased redness, your wound has increased drainage and your wound pain has increased Follow-up/Referrals: Abdoulaye Jordan DO, FACS [Physician] - 07/08/21 11:30 am (Please call to schedule follow up in clinic within 2 weeks) Zari Machado CRNP [Primary Care Provider] - Diet: Regular Addtl Attending Provider Instructions: Pending Studies at Discharge: Yes Studies:: surgical pathology Stand-Alone Forms: My [employer], Smoking Cessation Medications and DC Order Prescriptions: New oxycodone-acetaminophen [Percocet] 5-325 mg tablet 1 - 2 tab PO .q4-6h PRN (Reason: pain, for initial therapy, max 6 tabs per day) Qty: 15 RF: 0 Continued tamoxifen 20 mg Tablet 20 mg PO QPM RF: 0 cholecalciferol (vitamin D3) [Vitamin D3] 25 mcg (1,000 unit) Tablet 25 mcg PO DAILY RF: 0 Discharge Orders: Discharge Order (Routine); Ordered 06/26/21 Ordered By: Jo-Ann Pina Admission Data Admit Date/Time: 06/25/21 06:27 Attending Provider: Abdoulaye Jordan Admit Provider: Abdoulaye Jordan Primary Care Provider: Zari Machado Other Providers: Abdoulaye Jordan Other Interventions: Discharge Summary Assessment (RN) Last Done: 06/26/21 11:08 Coding Level of Care Code D/C DAY MANAGEMENT <30 MINS Diagnoses Acute cholecystitis K81.0
== END 2021-06-26 12:45 | disposition home or self-care (01) ==
LOC: ED 23:28 → 3E 23:28